=== PATIENT | female | born 1965 | race Caucasian/White ===

== ENCOUNTER 2019-05-29 12:05 | Emergency (ER) | payer OTHER ==
[~2019-05-29] VITALS: Ht 162.6 cm; Wt 70.3 kg
[~2019-05-29 12:05] MED LIST: LORA2 PO
[2019-05-29] MEDS ORDERED: TIZANIDINE HCL4 MG PO (12:25)
== END 2019-05-29 18:18 | disposition home or self-care (01) ==
LOC: ER 12:05
DX: F41.9 Anxiety disorder, unspecified (principal); Z76.0 Encounter for issue of repeat prescription; Z76.5 Malingerer [conscious simulation]; Z88.0 Allergy status to penicillin; Z88.2 Allergy status to sulfonamides; Z79.899 Other long term (current) drug therapy
CPT/HCPCS: 99281

== ENCOUNTER → 2019-07-04 | Outpatient (CLI) | payer OTHER ==
[~2019-07-04] MED LIST changes: +TIZANIDINE HCL4 MG PO
== END ==
LOC: LAB SHORT 14:18 → LAB 14:18
DX: R31.9 Hematuria, unspecified (principal); R35.0 Frequency of micturition
CPT/HCPCS: 87086

== ENCOUNTER 2019-08-12 09:55 | Day surgery (SDC) | payer OTHER ==
[~2019-08-12] VITALS: Ht 162.6 cm; Wt 64.8 kg
[2019-08-12] MEDS ORDERED: PROP10 (10:19)
[2019-08-12] MEDS ORDERED: ACET500 (10:23)
[2019-08-12] MEDS ORDERED: OMEP20ER (10:24)
[2019-08-12] MEDS ORDERED: ZOCOR20 MG (10:24)
[2019-08-12] MEDS ORDERED: POTA8 (10:24)
[2019-08-12] MEDS ORDERED: Trileptal150 MG (10:25)
[2019-08-12] MEDS ORDERED: GABA300 (10:25)
[2019-08-12] MEDS ORDERED: ONDA4ODT (10:25)
[2019-08-12] MEDS ORDERED: SPIR25 (10:25)
[2019-08-12] MEDS ORDERED: BUSP5 (10:26)
[2019-08-12] MEDS ORDERED: SERT100 (10:26)
[2019-08-12] MEDS ORDERED: OXYB5 (10:26)
[2019-08-12] MEDS ORDERED: TRAZ100 (10:26)
[2019-08-12] MEDS ORDERED: HYDCHL25 (10:27)
[2019-08-12 11:42] LABS: Alanine Aminotransfer (ALT/SGP 20 U/L (12-78); Albumin, Blood 3.9 g/dL (3.4-5.0); Albumin/Globulin Ratio 1.3 (0.8-1.8); Alk Phos 61 U/L (50-136); Anion Gap 7 mmol/L (6-16); Aspartate Aminotrans (AST/SGOT 14 U/L (12-37); Bilirubin, Total 0.6 mg/dL (0.1-1.0); Blood Urea Nitrogen 6 mg/dL (8-24); Bun/Creatinine Ratio 9.4 (12.0-20.0); CO2, Blood 24 mmol/L (21-32); Calcium, Blood 9.2 mg/dL (8.5-10.1); Chloride, Blood 109 mmol/L (98-108); Creatinine, Blood 0.64 mg/dL (0.40-1.00); Glomerular Filtration Rate >60 (60-); Glucose, Blood 87 mg/dL (70-99); Potassium, Blood 3.5 mmol/L (3.5-5.5); Sodium, Blood 140 mmol/L (136-145); Total Protein, Blood 6.9 g/dL (6.4-8.2)
--- NOTE | 2019-08-12 12:02 | NUR ---
08/12/19 1202 Belinda Hodge IV INFILTRATED - RESTART NEW IV IN R HAND BY BLASP, RN
--- NOTE | 2019-08-12 12:13 | NUR ---
08/12/19 1213 Belinda Hodge IV # 1 INFILTRATED IN PROCEDURE ROOM. IV DC'D AND WRAPPED WITH COBAN AND SECOND IV INSERTED IN R HAND, 20 CHANDA. PT TOLERATED WELL
== END 2019-08-12 12:43 | disposition home or self-care (01) ==
LOC: ORSCSDS 09:55
PROVIDERS: Internal Medicine Gastroenterology
PROC: 0DBP8ZX Excision of Rectum, Via Natural or Artificial Opening Endoscopic, Diagnostic (ICD-10-PCS; principal; 2019-08-12 11:00)
PROC: 0DBN8ZX Excision of Sigmoid Colon, Via Natural or Artificial Opening Endoscopic, Diagnostic (ICD-10-PCS; principal; 2019-08-12 11:00)
DX: K92.1 Melena (principal); Z80.0 Family history of malignant neoplasm of digestive organs; K59.00 Constipation, unspecified; D12.5 Benign neoplasm of sigmoid colon; K62.89 Other specified diseases of anus and rectum; I10 Essential (primary) hypertension; E78.5 Hyperlipidemia, unspecified; G40.909 Epilepsy, unspecified, not intractable, without status epilepticus; M79.7 Fibromyalgia; Z87.891 Personal history of nicotine dependence; Z79.899 Other long term (current) drug therapy
CPT/HCPCS: 80053; 88305; 93005; 93010; J2250; J2704; J3010; J7120

== ENCOUNTER → 2019-10-09 | Outpatient (CLI) | payer OTHER ==
[~2019-10-09] MED LIST changes: +ACET500; +BUSP5; +GABA300; +HYDCHL25; +OMEP20ER; +ONDA4ODT; +OXYB5; +POTA8; +PROP10; +SERT100; +SPIR25; +TRAZ100; +Trileptal150 MG; +ZOCOR20 MG
== END | disposition home or self-care (01) ==
LOC: LAB SHORT 15:49 → LAB 15:49
DX: N39.0 Urinary tract infection, site not specified (principal)
CPT/HCPCS: 87086

== ENCOUNTER → 2019-10-24 | Outpatient (CLI) | payer OTHER ==
[2019-10-27 07:10] LABS: CHLAMYDIA TRACHOMATIS, NAA Negative (Negative); NEISSERIA GONORRHOEAE, NAA Negative (Negative)
== END | disposition home or self-care (01) ==
LOC: LAB 14:56 → LAB SHORT 14:56
PROVIDERS: Family Medicine
DX: Z11.3 Encounter for screening for infections with a predominantly sexual mode of transmission (principal)
CPT/HCPCS: 87491; 87591

== ENCOUNTER → 2019-11-11 | Outpatient (CLI) | payer OTHER ==
[2019-11-13 08:26] LABS: Candida species (DNA Probe) Negative (NEGATIVE); G. vaginalis (DNA Probe) Negative (NEGATIVE); T. vaginalis (DNA Probe) Negative (NEGATIVE)
== END | disposition home or self-care (01) ==
LOC: LAB 15:38 → LAB SHORT 15:38
PROVIDERS: Family Medicine
DX: N89.8 Other specified noninflammatory disorders of vagina (principal)
CPT/HCPCS: 87480; 87510; 87660

== ENCOUNTER → 2019-11-20 | Outpatient (CLI) | payer OTHER | END | disposition home or self-care (01) | LOC: LAB SHORT 15:33 → LAB 15:33 | DX: R10.2 Pelvic and perineal pain (principal) | CPT/HCPCS: 87086 ==

== ENCOUNTER 2020-04-08 08:40 | Day surgery (SDC) | payer OTHER ==
[~2020-04-08] VITALS: Ht 162.6 cm; Wt 64.6 kg
[~2020-04-08 08:40] MED LIST changes: -GABA300; +GABA300 PO; -ONDA4ODT; +ONDA4ODT PO; -OXYB5; +OXYB5 PO; -PROP10; +PROP10 PO; -TRAZ100; +TRAZ100 PO; -Trileptal150 MG; +Trileptal150 MG PO
[2020-04-08] MEDS ORDERED: ARIPIPRAZOLE15 MG PO (09:57)
[2020-04-08] MEDS ORDERED: SPIRONOLACTONE25 MG PO (09:59)
[2020-04-08] MEDS ORDERED: Methocarbamol750 MG PO (10:00)
--- NOTE | 2020-04-08 10:47 | NUR ---
04/08/20 1047 Belinda Villatoro 405CC NACL FLUID DEFICIT FROM HYSTEROSCOPY. SURGEON AND ANESTHESIA AWARE.
--- NOTE | 2020-04-08 11:28 | NUR ---
04/08/20 1128 MICHEAL IBARRA PT TO STEP DOWN, TEARFUL ANDEMOTIONAL. PT REPORTS PAIN 7/10 IN ABDOMEN, CRAMPING. PT MEDICATED WITH IV FENTANYL NEEDED FOR PAIN PER MD ORDERS. TOLERATING PO INTAKE - SIPS AND ICE CHIPS. PT REPORTS INTERMITTENT NAUSEA AND IS MEDICATED WITH REGLAN 10MG IV PER MD ORDERS INTO RECLINER, SANDRA PAD IN PLACE WITH SMALL AMNT RED BLEEDING.
[2020-06-13] MEDS ORDERED: Vitamin B-121000 MCG PO (13:59)
[2020-06-13] MEDS ORDERED: ASCO500 PO (13:59)
[2020-06-13] MEDS ORDERED: CRANBERRY500 M1 PO (14:00)
[2020-06-13] MEDS ORDERED: VITAMIN D32000 UNI1 PO (14:00)
[2020-06-13] MEDS ORDERED: HAIR, SKIN AND1 EAC3 PO (14:00)
[2020-06-13] MEDS ORDERED: VENL150ER PO (14:01)
== END 2020-04-08 12:15 | disposition home or self-care (01) ==
LOC: ORSCSDS 08:40
PROVIDERS: Obstetrics & Gynecology
PROC: 0UDB8ZX Extraction of Endometrium, Via Natural or Artificial Opening Endoscopic, Diagnostic (ICD-10-PCS; principal; 2020-04-08 10:15)
DX: N95.0 Postmenopausal bleeding (principal); D25.9 Leiomyoma of uterus, unspecified; R10.2 Pelvic and perineal pain; E11.9 Type 2 diabetes mellitus without complications; Z79.899 Other long term (current) drug therapy; J45.909 Unspecified asthma, uncomplicated; M79.7 Fibromyalgia; Z87.891 Personal history of nicotine dependence
CPT/HCPCS: 88305; A9270; J0690; J1100; J1885; J2250; J2405; J2704; J2765; J3010; J7120

== ENCOUNTER 2020-06-16 06:01 | Day surgery (SDC) | payer OTHER ==
[~2020-06-16] VITALS: Ht 162.6 cm; Wt 63.0 kg
[~2020-06-16 06:01] MED LIST changes: +ARIPIPRAZOLE15 MG PO; +ASCO500 PO; +CRANBERRY500 M1 PO; +HAIR, SKIN AND1 EAC3 PO; +Methocarbamol750 MG PO; +SPIRONOLACTONE25 MG PO; +VENL150ER PO; +VITAMIN D32000 UNI1 PO; +Vitamin B-121000 MCG PO
--- NOTE | 2020-06-16 07:04 | NUR ---
History, Chart, Medications and Allergies reviewed before start of procedure. Lungs clear T/O to Auscultation. Patient confirms NPO status and agrees with scheduled surgery. Pre-Op teaching done. Pt verbalizes understanding. Patient reports completing Chlorhexadine shower X2 prior to admission to hospital.
--- NOTE | 2020-06-16 17:03 | NUR ---
PT RESTING IN BED, VSS, CONT. TO REPORT 10/10 PAIN ON LOWER BACK AND LOWER ABD, PT ABLE TO GET OOB TO CHAIR WITH STANDBY ASSIST, TOLERATED WELL, APPEARS TO BE IN NO DISTRESS, MEDICATED WITH ZOFRAN FOR C/O NAUSEA EARLIER, NOW " A LITTLE BETTER" ABD INCISIONS WITH WOUND GLUE C/D/I, SOMMER CATH DRAINING C/Y/U, PT HAS HAD PERCOCET AND FENTANYL FOR PAIN AND K-PAD, NO ACUTE CHANGES THIS SHIFT.
--- NOTE | 2020-06-16 18:53 | NUR ---
DR. DEXTER IN TO SEE PT, NOTIFIED REGARDING NEED FOR MORE PAIN CONTROL FOR PT, PAIN MEDS CHANGED TO IV DILAUDID, PT MEDICATED ORDERED, PAIN DECREASED FROM 11/20 TO 08/20, NO OTHER CHANGES THIS SHIFT.
[2020-06-17 04:55] LABS: BASOPHILS ABSOLUTE AUTO 0.01 K/mm3 (0.00-0.23); BASOPHILS PERCENT AUTO 0 % (0-2); EOSINOPHILS ABSOLUTE AUTO 0.01 K/mm3 (0.00-0.68); EOSINOPHILS PERCENT AUTO 0 % (0-6); Hematocrit 36.2 % (33.0-51.0); Hemoglobin 12.5 g/dL (11.5-16.0); IMMATURE GRAN ABSOLUTE AUTO 0.03 K/mm3 (0.00-0.10); IMMATURE GRAN PERCENT AUTO 0 % (0-1); LYMPHOCYTES PERCENT AUTO 17 % (21-46); MONOCYTES ABSOLUTE AUTO 0.54 K/mm3 (0.16-1.47); MONOCYTES PERCENT AUTO 6 % (4-13); Mean Corpuscular HGB 32.4 pg (26.0-34.0); Mean Corpuscular HGB Conc 34.5 g/dL (31.5-36.5); Mean Corpuscular Volume 94 fL (80-100); Mean Platelet Volume 9.1 fL (9.1-12.4); NEUTROPHILS ABSOLUTE AUTO 7.19 K/mm3 (1.96-9.15); NEUTROPHILS PERCENT AUTO 77 % (41-73); Platelet Count 188 K/mm3 (150-400); RDW Coefficient Variation 13.2 % (11.7-14.2); RDW Standard Deviation 45.1 fL (35.1-46.3); Red Blood Cell Count 3.86 M/mm3 (3.80-5.20); White Blood Cell Count 9.38 K/mm3 (4.00-11.30)
--- NOTE | 2020-06-17 06:36 | NUR ---
SHIFT SUMMARY POD1 LAP ROBOTIC ABD HYSTER, A/O X4, VSS, TOLERATING PO, VOIDING VIA SOMMER, PAIN MANAGED PER EMAR PRIMARILY VIA IV MEDICATIONS, NO BM THIS SHIFT, NO ACUTE EVENTS THIS SHIFT. CALL LIGHT IN REACH, WILL CONTINUE TO MONITOR AND REPORT TO ONCOMING DAY RN.
--- NOTE | 2020-06-17 07:00 | NUR ---
06/17/20 0700 Helena Luis VERIFICATIONS: EDIT CHART.
--- NOTE | 2020-06-17 15:57 | NUR ---
SHIFT SUMMARY: POD 1 TOTAL LAP HYSTERECTOMY PATIENT IS ALERT AND ORIENTED X4. VS ARE WNL AND IS ON RA. PAIN IS CONTROLLED WITH IV DILAUDID AND PO PERCOCET. SHE HAS 3 LAP SITES WITH WOUND GLUE ON THEM THAT ARE C/D/I. SHE HAS HYPERACTIVE BOWEL TONES. SHE IS TOLERATING PO INTAKE AND IS VOIDING. PATIENT HAS BEEN WALKING DOWN THE HALLS AND IS A SBA. SHE ALSO HAS AN ABD BINDER ON TO AIDE WITH DISCOMFORT WELL A HEATING PAD. CALLS APPROPRIATELY. CALL LIGHT WITHIN REACH. THE PLAN IS TO HAVE PAIN CONTROLLED WITHOUT THE IV NARCOTICS.
--- NOTE | 2020-06-17 19:58 | NUR ---
Pt AGREES TO STUDENT PARTICIPATION IN CARE
--- NOTE | 2020-06-18 05:45 | NUR ---
SHIFT SUMMARY: POD32 VUVLAR BIOPSY LYSIS OF ADHESIONS TOTAL HYSTERECTOMY ROBOT ASSIST W/BILAT SALPINGO OOPHORECTOMY. PT IS A&OX4 W/ DEPRESSED AFFECT SLOW SPEECH AND GOOD EYE CONTACT. PT HAS 4X LAP SITES W/GLUE DRY INTACT, PT C/O PAIN T/O THE SHIFT TO THE ABDOMEN/BACK AREA, MEDICATIONS EFFECTIVE,PT OOB BRP TO VOID SEVERAL TIMES,INDEPENDENT,PT ORIENTATED TO ROOM CALL LIGHT WITHIN REACH.
[2020-06-18] MEDS ORDERED: Percocet 5-3251 EACH PO (10:07)
--- NOTE | 2020-06-18 10:49 | NUR ---
DISCHARGE SUMMARY PT GIVEN VERBAL AND WRITTEN DISCHARGE INSTRUCTIONS. PT VERBALIZED UNDERSTANDING. IV REMOVED WITH TIP INTACT. PT WHEELED OUT IN WHEELCHAIR. DISCHARGED WITH FRIEND PER VEHICLE.
== END 2020-06-18 10:45 | disposition home or self-care (01) ==
LOC: OLS 06:01 → SURS 06:01 → ORSCMMR 06:01 → ORD 07:30 → ORSCMMR 07:30 → SURS 11:49 → ORSCMMR 11:49 → SURS 06-17 10:36 → ORSCMMR 06-18 10:45 → SURS 06-18 10:45
PROVIDERS: Obstetrics & Gynecology
DX: D25.0 Submucous leiomyoma of uterus (principal); N95.0 Postmenopausal bleeding; G89.29 Other chronic pain; R10.2 Pelvic and perineal pain; N90.89 Other specified noninflammatory disorders of vulva and perineum; K66.0 Peritoneal adhesions (postprocedural) (postinfection); N72 Inflammatory disease of cervix uteri; K66.8 Other specified disorders of peritoneum; N83.299 Other ovarian cyst, unspecified side; I10 Essential (primary) hypertension; J45.909 Unspecified asthma, uncomplicated; E78.5 Hyperlipidemia, unspecified; M19.90 Unspecified osteoarthritis, unspecified site; M79.7 Fibromyalgia; R56.9 Unspecified convulsions; I25.2 Old myocardial infarction; Z87.891 Personal history of nicotine dependence; Z88.8 Allergy status to other drugs, medicaments and biological substances; Z91.040 Latex allergy status; Z88.0 Allergy status to penicillin; Z88.2 Allergy status to sulfonamides; Z87.42 Personal history of other diseases of the female genital tract; Z98.51 Tubal ligation status
CPT/HCPCS: 36415; 85025; 86850; 86900; 86901; 88305; 88307; 93005; 93010; A9270; G0378; J0461; J0690; J1100; J1170; J2250; J2370; J2405; J2704; J3010; J7120

== ENCOUNTER → 2021-07-17 | Outpatient (CLI) | payer OTHER ==
[~2021-07-17] MED LIST changes: +Percocet 5-3251 EACH PO
== END | disposition home or self-care (01) ==
LOC: LAB SHORT 11:30
DX: M54.50 Low back pain, unspecified (principal); R35.0 Frequency of micturition; R10.9 Unspecified abdominal pain
CPT/HCPCS: 87086; 87147

== ENCOUNTER → 2022-03-21 | Outpatient (CLI) | payer OTHER | LOC: LAB 13:45 → LAB SHORT 13:45 | DX: R35.0 Frequency of micturition (principal) | CPT/HCPCS: 87086 ==

== ENCOUNTER 2022-06-15 16:01 | Emergency (ER) | payer OTHER ==
[~2022-06-15] VITALS: Ht 162.6 cm; Wt 72.6 kg
[~2022-06-15 16:01] MED LIST changes: -BUSP5; +BUSP5 PO; -OMEP20ER; +OMEP20ER PO; -ZOCOR20 MG; +ZOCOR20 MG PO
[2022-06-15 17:10] LABS: BASOPHILS ABSOLUTE AUTO 0.03 K/mm3 (0.00-0.23); BASOPHILS PERCENT AUTO 0 % (0-2); EOSINOPHILS ABSOLUTE AUTO 0.06 K/mm3 (0.00-0.68); EOSINOPHILS PERCENT AUTO 1 % (0-6); Hematocrit 41.2 % (33.0-51.0); Hemoglobin 14.2 g/dL (11.5-16.0); IMMATURE GRAN ABSOLUTE AUTO 0.03 K/mm3 (0.00-0.10); IMMATURE GRAN PERCENT AUTO 0 % (0-1); LYMPHOCYTES ABSOLUTE AUTO 3.06 K/mm3 (0.84-5.20); LYMPHOCYTES PERCENT AUTO 37 % (21-46); MONOCYTES ABSOLUTE AUTO 0.46 K/mm3 (0.16-1.47); MONOCYTES PERCENT AUTO 6 % (4-13); Mean Corpuscular HGB 28.1 pg (26.0-34.0); Mean Corpuscular HGB Conc 34.5 g/dL (31.5-36.5); Mean Corpuscular Volume 81 fL (80-100); Mean Platelet Volume 8.9 fL (9.1-12.4); NEUTROPHILS ABSOLUTE AUTO 4.59 K/mm3 (1.96-9.15); NEUTROPHILS PERCENT AUTO 56 % (41-73); Platelet Count 297 K/mm3 (150-400); RDW Coefficient Variation 13.1 % (11.7-14.2); RDW Standard Deviation 38.4 fL (35.1-46.3); Red Blood Cell Count 5.06 M/mm3 (3.80-5.20); White Blood Cell Count 8.23 K/mm3 (4.00-11.30)
[2022-06-15 18:57] LABS: Alanine Aminotransfer (ALT/SGP 24 U/L (12-78); Albumin, Blood 3.5 g/dL (3.4-5.0); Albumin/Globulin Ratio 1.1 (0.8-1.8); Alk Phos 118 U/L (50-136); Anion Gap 6 mmol/L (6-16); Aspartate Aminotrans (AST/SGOT 16 U/L (12-37); Bilirubin, Total 0.3 mg/dL (0.1-1.0); Blood Urea Nitrogen 10 mg/dL (8-24); Bun/Creatinine Ratio 17.2 (12.0-20.0); CO2, Blood 25 mmol/L (21-32); Calcium, Blood 8.8 mg/dL (8.5-10.1); Chloride, Blood 108 mmol/L (98-108); Creatinine, Blood 0.58 mg/dL (0.40-1.00); Free Thyroxine 1.68 ng/dL (0.70-1.60); Globulin, Blood 3.3 g/dL (2.2-4.0); Glomerular Filtration Rate 107 (60-); Glucose, Blood 124 mg/dL (70-99); Potassium, Blood 3.8 mmol/L (3.5-5.5); Sodium, Blood 139 mmol/L (136-145); Thyroid Stimulating Hormone <0.005 uIU/mL (0.360-4.800); Total Protein, Blood 6.8 g/dL (6.4-8.2)
[2022-06-15 19:54] LABS: Triiodothyronine, Free 7.43 pg/mL (2.18-3.98)
[2022-06-15] MEDS ORDERED: ROSU10TA PO (20:33)
[2022-06-15 21:15] VITALS: BP 113/73
== END 2022-06-15 21:29 | disposition home or self-care (01) ==
LOC: ER 16:01
PROVIDERS: Emergency Medicine; Physician Assistant
DX: R00.2 Palpitations (principal); E05.90 Thyrotoxicosis, unspecified without thyrotoxic crisis or storm; R07.89 Other chest pain; I25.2 Old myocardial infarction; Z88.0 Allergy status to penicillin; Z88.2 Allergy status to sulfonamides; Z91.040 Latex allergy status; Z79.899 Other long term (current) drug therapy; F17.200 Nicotine dependence, unspecified, uncomplicated
CPT/HCPCS: 71046; 71260; 80053; 83735; 83880; 84439; 84443; 84481; 84484; 85025; 85379; 93005; 93010; 99285-25; Q9967

== ENCOUNTER → 2022-10-08 | Outpatient (CLI) | payer OTHER ==
[~2022-10-08] MED LIST changes: +ROSU10TA PO
== END | disposition home or self-care (01) ==
LOC: LAB SHORT 13:27 → LAB 13:27
DX: N39.0 Urinary tract infection, site not specified (principal)
CPT/HCPCS: 87086

== ENCOUNTER 2022-12-09 16:19 | Emergency (ER) | payer OTHER ==
[~2022-12-09] VITALS: Ht 162.6 cm; Wt 77.1 kg
[2022-12-09 16:24] VITALS: BP 149/93
== END 2022-12-09 18:06 | disposition home or self-care (01) ==
LOC: ER 16:19
DX: R51.9 Headache, unspecified (principal); M54.2 Cervicalgia; M54.50 Low back pain, unspecified; M25.562 Pain in left knee; W18.39XA Other fall on same level, initial encounter; Z88.2 Allergy status to sulfonamides; Z91.040 Latex allergy status; Z88.0 Allergy status to penicillin; Z91.013 Allergy to seafood; Z79.899 Other long term (current) drug therapy; J45.909 Unspecified asthma, uncomplicated; I10 Essential (primary) hypertension
CPT/HCPCS: 72040; 72100; 73562-LT; 96372; 99283-25; A9270; J1885

== ENCOUNTER 2023-02-20 12:07 | Emergency (ER) | payer OTHER ==
[~2023-02-20] VITALS: Ht 162.6 cm; Wt 83.9 kg
[2023-02-20 13:00] LABS: BASOPHILS ABSOLUTE AUTO 0.05 K/mm3 (0.00-0.23); BASOPHILS PERCENT AUTO 1 % (0-2); EOSINOPHILS ABSOLUTE AUTO 0.15 K/mm3 (0.00-0.68); EOSINOPHILS PERCENT AUTO 2 % (0-6); Hematocrit 41.2 % (33.0-51.0); Hemoglobin 14.5 g/dL (11.5-16.0); IMMATURE GRAN ABSOLUTE AUTO 0.02 K/mm3 (0.00-0.10); IMMATURE GRAN PERCENT AUTO 0 % (0-1); LYMPHOCYTES ABSOLUTE AUTO 2.05 K/mm3 (0.84-5.20); LYMPHOCYTES PERCENT AUTO 30 % (21-46); MONOCYTES ABSOLUTE AUTO 0.48 K/mm3 (0.16-1.47); MONOCYTES PERCENT AUTO 7 % (4-13); Mean Corpuscular HGB 30.1 pg (26.0-34.0); Mean Corpuscular HGB Conc 35.2 g/dL (31.5-36.5); Mean Corpuscular Volume 86 fL (80-100); Mean Platelet Volume 9.2 fL (9.1-12.4); NEUTROPHILS ABSOLUTE AUTO 4.06 K/mm3 (1.96-9.15); NEUTROPHILS PERCENT AUTO 60 % (41-73); Platelet Count 297 K/mm3 (150-400); RDW Coefficient Variation 13.1 % (11.7-14.2); Red Blood Cell Count 4.82 M/mm3 (3.80-5.20); White Blood Cell Count 6.81 K/mm3 (4.00-11.30)
[2023-02-20 13:16] LABS: Albumin, Blood 3.5 g/dL (3.4-5.0); Albumin/Globulin Ratio 0.9 (0.8-1.8); Bilirubin, Total 0.5 mg/dL (0.1-1.0); Calcium, Blood 9.1 mg/dL (8.5-10.1); Creatinine, Blood 0.56 mg/dL (0.40-1.00); Globulin, Blood 3.7 g/dL (2.2-4.0); Total Protein, Blood 7.2 g/dL (6.4-8.2)
[2023-02-20 16:14] VITALS: BP 113/76
== END 2023-02-20 16:19 | disposition home or self-care (01) ==
LOC: ER 12:07
PROVIDERS: Student in an Organized Health Care Education/Training Program
DX: R07.9 Chest pain, unspecified (principal); Z87.891 Personal history of nicotine dependence
CPT/HCPCS: 71046; 80053; 83690; 84484; 85025; 93005; 93010; 96374; 96375; 99285-25; J2405